=== PATIENT | female | born 1975 | race Caucasian/White ===

== ENCOUNTER 2017-01-25 09:27 | Emergency (ER) | payer MEDICAID ==
[~2017-01-25] VITALS: Ht 167.6 cm; Wt 65.8 kg
[~2017-01-25 09:27] MED LIST: MONODOX100 MG PO; OMEPRAZOLE40 MG PO
[2017-01-25 09:47] LABS: URINE BILIRUBIN - DIPSTICK NEGATIVE (NEG)
[2017-01-25 09:48] LABS: URINE BLOOD LARGE (NEG)
--- NOTE | 2017-01-25 09:58 | Urgent Treatment Center Report ---
History of Present Issue Date/Time Seen by Provider 01/25/17 0945 Visit Reason Pt arrived:Walked Presenting Problem:PT C/O ABNORMAL VAGINAL BLEEDING X3 DAYS. PT C/O PAIN ON RIGHT LOWER SIDE AROUND OVARY AND GOES AROUND TO HER BACK Location if Accident: Onset of symptoms date/time:/ or onset unknown for:MEDICAL HX UNKNOWN Have you (or family members/close friends) recently traveled outside the [place]? N If Yes, where/when: Have you had exposure to infectious disease within the past month? TB? Other? Specify: Patient state that on Tuesday she began spotting then today she was having a little more bleeding. States that she is having to change her panty liner every 3-4 hours. States that her bleeding is not real heavy and not passing clots, states that this morning she started having some right flank pain and burning when she urinates ALLERGIES Coded Allergies: No Known Allergies (10/24/15) History Medical History General CAD? No Angina: No [place]: No Hypertension? No Hyperlipidemia? No CHF? No DVT? No PE? No COPD? No Asthma? No Anemia? No GERD? No Gastric ulcers? No GI Bleed? No Hernia? No Thyroid Problems? No Hypothyroidism? No CVA? No Seizures? No Diabetes? No Renal Insuffiency? No UTI? No Stones? No BPH? No GB Disease: Yes Nephritic Syndrome? No Asplenia? No Hepatitis? No Sickle Cell Disease? No Arthritis? No Migraines? No Cataracts? No Glaucoma? No MRSA? No HIV? No TB? No Anxiety? Yes Depression? No Cancer? No More? No Immunization HX DT/Tetanus 1-4 YRS Flu NEVER Pneumonia NEVER Surgical Hx Previous Surgery?Y D AND C X 2 X 2 CHOLECYSTECTOMY TUBAL Family History Family HX Diabetes Yes CAD Yes Hypertension Yes Hyperlipidemia No Cancer Yes TB Yes Social History Smoking Hx Smoker: Never Smoker Tobacco: No Alcohol Alcohol: No Review of Systems All Other Systems Reviewed and Negative Genitourinary abnormal vaginal bleeding, dysuria, frequency, pain. denies: discharge, vaginal discharge, hesitancy, pelvic pain. Physical Exam Vital Signs Vital Signs Date Time Temp Pulse Resp B/P Pulse O2 O2 Flow FiO2 Ox Delivery Rate 01/25 0938 99.2 97 20 141/72 100 General Appearance normal appearance, WD/WN, no apparent distress Respiratory Status Yes: trachea midline, chest symmetrical. No: respiratory distress. Cardiovascular normal exam, regular rate/rhythm, no peripheral edema, no gallop Gastrointestinal normal bowel sounds, normal exam, non tender, soft, no guarding , no rebound Back normal inspection, no CVA tenderness, no vertebral tenderness Pelvic scant bleeding Nurse present during exam? 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 No Results/Orders Laboratory Tests 01/25/17 0941: Urine Color ORANGE, Urine Appearance CLOUDY, Urine pH 5.0, Ur Specific [place] 1.025, Urine Protein 30, Urine Ketones NEGATIVE, Urine Blood LARGE, Urine Nitrate NEGATIVE, Urine Bilirubin NEGATIVE, Urine Urobilinogen 0.2, Ur Leukocyte Esterase TRACE H, Urine Glucose NEGATIVE Orders Procedure Date/time Status [facility] URINE DIPSTICK 01/25 941 Complete Departure Departure Time of Disposition 1001 Disposition DC Home or Self Care(routine) Clinical Impression Primary Impression: UTI (urinary tract infection) Qualifiers: Urinary tract infection type: site unspecified Hematuria presence: with hematuria Qualified Code: N39.0 - Urinary tract infection, site not specified Condition STABLE Referrals Haris MARQUEZ,Eugenio Toscano.: Today after leaving ER Graeme Rodarte MD: Today after leaving ER Patient Instructions DI for Urinary Tract Infection (UTI) Additional Instructions Follow up with OBGYN for complete work up for abnormal bleeding Take medication as prescribed Follow up with family doctor Return if needed Drink plenty of fluids Wipe front to back If any changes or worsening of bleeding report directly to ER Discharge Counseling Counseled pt/family regarding diagnosis, test results, medications/RX, home care, follow up needs Prescriptions Current Visit Scripts SULFAMETHOXAZOLE W/TRIMETHOPRI (Bactrim Ds Tab) 1 TABLET PO BID #20 TAB at 1017
--- NOTE | 2017-01-25 09:58 | Urgent Treatment Center Report ---
History of Present Issue Date/Time Seen by Provider 01/25/17 0945 Visit Reason Pt arrived:Walked Presenting Problem:PT C/O ABNORMAL VAGINAL BLEEDING X3 DAYS. PT C/O PAIN ON RIGHT LOWER SIDE AROUND OVARY AND GOES AROUND TO HER BACK Location if Accident: Onset of symptoms date/time:/ or onset unknown for:MEDICAL HX UNKNOWN Have you (or family members/close friends) recently traveled outside the [place]? N If Yes, where/when: Have you had exposure to infectious disease within the past month? TB? Other? Specify: Patient state that on Tuesday she began spotting then today she was having a little more bleeding. States that she is having to change her panty liner every 3-4 hours. States that her bleeding is not real heavy and not passing clots, states that this morning she started having some right flank pain and burning when she urinates ALLERGIES Coded Allergies: No Known Allergies (10/24/15) History Medical History General CAD? No Angina: No [place]: No Hypertension? No Hyperlipidemia? No CHF? No DVT? No PE? No COPD? No Asthma? No Anemia? No GERD? No Gastric ulcers? No GI Bleed? No Hernia? No Thyroid Problems? No Hypothyroidism? No CVA? No Seizures? No Diabetes? No Renal Insuffiency? No UTI? No Stones? No BPH? No GB Disease: Yes Nephritic Syndrome? No Asplenia? No Hepatitis? No Sickle Cell Disease? No Arthritis? No Migraines? No Cataracts? No Glaucoma? No MRSA? No HIV? No TB? No Anxiety? Yes Depression? No Cancer? No More? No Immunization HX DT/Tetanus 1-4 YRS Flu NEVER Pneumonia NEVER Surgical Hx Previous Surgery?Y D AND C X 2 X 2 CHOLECYSTECTOMY TUBAL Family History Family HX Diabetes Yes CAD Yes Hypertension Yes Hyperlipidemia No Cancer Yes TB Yes Social History Smoking Hx Smoker: Never Smoker Tobacco: No Alcohol Alcohol: No Review of Systems All Other Systems Reviewed and Negative Genitourinary abnormal vaginal bleeding, dysuria, frequency, pain. denies: discharge, vaginal discharge, hesitancy, pelvic pain. Physical Exam Vital Signs Vital Signs Date Time Temp Pulse Resp B/P Pulse O2 O2 Flow FiO2 Ox Delivery Rate 01/25 0938 99.2 97 20 141/72 100 General Appearance normal appearance, WD/WN, no apparent distress Respiratory Status Yes: trachea midline, chest symmetrical. No: respiratory distress. Cardiovascular normal exam, regular rate/rhythm, no peripheral edema, no gallop Gastrointestinal normal bowel sounds, normal exam, non tender, soft, no guarding , no rebound Back normal inspection, no CVA tenderness, no vertebral tenderness Pelvic scant bleeding Nurse present during exam? Yes Neurologic alert, abstract maker II-XII nml as tested, normal exam Medical Decision Making LABS/Meds/Orders Pt receiving controlled substance in ED? No Results/Orders Laboratory Tests 01/25/17 0941: Urine Color ORANGE, Urine Appearance CLOUDY, Urine pH 5.0, Ur Specific [place] 1.025, Urine Protein 30, Urine Ketones NEGATIVE, Urine Blood LARGE, Urine Nitrate NEGATIVE, Urine Bilirubin NEGATIVE, Urine Urobilinogen 0.2, Ur Leukocyte Esterase TRACE H, Urine Glucose NEGATIVE Orders Procedure Date/time Status [facility] URINE DIPSTICK 01/25 941 Complete Departure Departure Time of Disposition 1001 Disposition DC Home or Self Care(routine) Clinical Impression Primary Impression: UTI (urinary tract infection) Qualifiers: Urinary tract infection type: site unspecified Hematuria presence: with hematuria Qualified Code: N39.0 - Urinary tract infection, site not specified Condition STABLE Referrals Haris MARQUEZ,Eugenio Toscano.: Today after leaving ER Graeme Rodarte MD: Today after leaving ER Patient Instructions DI for Urinary Tract Infection (UTI) Additional Instructions Follow up with OBGYN for complete work up for abnormal bleeding Take medication as prescribed Follow up with family doctor Return if needed Drink plenty of fluids Wipe front to back If any changes or worsening of bleeding report directly to ER Discharge Counseling Counseled pt/family regarding diagnosis, test results, medications/RX, home care, follow up needs Prescriptions Current Visit Scripts SULFAMETHOXAZOLE W/TRIMETHOPRI (Bactrim Ds Tab) 1 TABLET PO BID #20 TAB at 1017
[2017-01-25] MEDS ORDERED: BACTRIM DS 8001 TA1 PO (10:04)
[2017-01-25 10:08] VITALS: BP 141/72
--- OUTSIDE RECORDS SUMMARY | 2017-02-01 02:13 | External Medical Summary Rpt ---
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 Unavailable Unavailable SERVICE, [facility] MICHELLE DUMONT, Unavailable Unavailable [facility], Unavailable Unavailable [facility] CHICA MELANI, CHICA Unavailable Unavailable MELANI [facility], Unavailable Unavailable [facility] Unavailable Unavailable INC, [facility] Unavailable Unavailable HOSPITAL, [facility], Unavailable Unavailable [facility] Unavailable Unavailable [facility], [facility] Unavailable Unavailable SERVICES, [facility] RAKESH MCGINNIS, Unavailable Unavailable [facility] Unavailable Unavailable LAB, [id number], Unavailable Unavailable [id number] Unavailable Unavailable [id number] [address] [id number], [facility] [id number] [address] [id number] CISCO TOM, CISCO Unavailable Unavailable TOM [facility]STAD DOROTEO, Unavailable Unavailable [facility] D[facility], Unavailable Unavailable [facility] BENEDICTO MAT, Unavailable Unavailable BENEDICTO MAT SOKAN BAB, SOKAN BAB Unavailable Unavailable OCTAVIO DURAND, Unavailable Unavailable OCTAVIO DURAND A C, CATALINA, Unavailable Unavailable Rohit C Purpose Continuity of Care Document - 09-08-2007 through 2016 Problems Code Diagnosis DOS Provider Status J101 FLU D/T [facility] 11-10-2015 FLUKER ID FLU [facility] RESP MANIFESTATI ONS E876 HYPOKALEMIA 10-28-2015 [facility] R002 PALPITATION 10-28-2015 [facility] S [facility] R079 CHEST PAIN 10-28-2015 [facility] UNSPECIFIED PHYSICIANS GROUP [id number] ABNORMAL 10-28-2015 [facility]LECTR[facility]ARD [facility] IOGRAM INC R000 TACHYCARDIA 10-24-2015 [facility] UNSPECIFIED SERVICE R110 NAUSEA 10-24-2015 [facility] SERV[facility] 462 ACUTE 10-11-2014 TRUMAN AKERS PHARYNGITIS 4659 ACUTE URIS 10-11-2014 TRUMAN AKERS OF UNSPECIFIED SITE 78322 ESOPHAGEAL 02-09-2012 [facility] 7061 OTHER ACNE 01-18-2012 TRUMAN OSWALD 24851 CLOSED 11-06-2011 [facility] FRACTURE [facility] UNSPEC INC PHALANX/PHA LANGES HAND 61149 CLOSED 11-06-2011 [facility] DISTAL SERVICES PHALANX OR PHALANGES HAND 45192 CHOLECYSTIT 03-13-2010 COMMUNITY IS, ANESTH OF UNSPECIFIED THE [place] 77143 CHRONIC 03-13-2010 PATHOLOGY & CHOLECYSTIT CYTOLOGY IS LAB 5758 OTHER 03-13-2010 [facility] SPECIFIED [facility] DISORDER OF INC GALLBLADDER 39390 NAUSEA 03-03-2010 [facility] ALONE DOROTEO 7873 FLATULENCE 03-03-2010 [facility] ERUCTATION DOROTEO AND GAS PAIN 88574 ABDOMINAL 03-03-2010 [facility] PAIN RIGHT DOROTEO UPPER QUADRANT 5759 UNSPECIFIED 02-23-2010 ARNOLD, DISORDER JOEY W OF GALLBLADDER 4619 ACUTE 08-07-2009 Rohit ARNOLD SINUSITISMD PSC UNSPECIFIED 62407 PAIN IN 09-16-2007 [facility] PROF SERV 50380 PREV C/S 09-14-2007 [facility] W/WO CLINIC OF MENTION MIGUEL MARTINEZ [facility] COND V252 STERILIZATI 09-14-2007 PATHOLOGY & ON CYTOLOGY LAB V270 OUTCOME OF 09-14-2007 [facility] V221 SUPERVISION 09-08-2007 [facility] Miles OF RHONDA EDWARDS MD NORMAL N92.1 EXCESSIVE AND FREQUENT MENSTRUATIO N WITH IRREGULAR CYCLE R00.2 PALPITATION S Medications Na ND Rx Da Fi Fi Am Da Di Ph RX Ph St me C No te ll ll ou ys ag ar # ys at rm s nt no ma ic us Or Da si cy ia de te s n re d 00 07 07 30 5 RI 84 SC Ac 60 -0 -0 .0 TE 10 HU ti 33 9- 9- 00 26 LS ve 88 20 20 AI TA 12 10 10 D D 8 PH CA AR MP MA BE CY LL K 03 93 8 # 03 93 66 12 12 00 12 6 RI 81 No Ac 99 -0 -1 0. TE 15 t ti 20 3- 7- 00 83 Av ve 23 20 20 0 AI ai 00 09 09 D la 4 PH bl AR e M #3 93 8 CE 00 12 12 00 30 10 RI 81 No Ac PH 14 -0 -1 .0 TE 15 t ti AL 39 3- 7- 00 81 Av ve EX 89 20 20 AI ai IN 70 09 09 D la 1 PH bl 50 AR e 0 M MG #3 93 CA 8 PS UL E PE 00 09 12 00 40 10 RI 81 AR Ac NI 09 -2 -0 .0 TE 02 NO ti CI 31 5- 3- 00 14 LD ve LL 17 20 20 AI IN 40 09 09 D RI 1 PH CH VK AR AR M D 50 #3 W 0 93 MG 8 TA BL ET FU 00 01 03 00 10 5 RI 71 No Ac RO 37 -1 -2 .0 TE 51 t ti SE 80 5- 5- 00 08 Av ve MA 20 20 20 AI ai DE 81 08 08 D la 0 PH bl 20 AR e M MG #3 93 TA 8 BL ET 00 01 03 00 30 6 CL 16 No Ac 05 -1 -2 .0 IN 25 t ti 44 2- 5- 00 IC 74 Av ve 65 20 20 ai 02 08 08 PH la 9 AR bl MA e CY Procedures Procedure DOS Code Location Performer Comment ECG 41535 [facility] GUSTAFSON ROUTINE 6 [facility] ECG INC INC W/LEAST 12 LDS TRCG ONLY W/O I&R ECG 33603 [facility] ROUTINE 6 PHYSICIAN MAT ECG S GROUP W/LEAST 12 LDS I&R ONLY COLLECTIO 05781 [facility] GUSTAFSON N VENOUS 6 [facility] BLOOD INC INC VENIPUNCT URE BASIC 75603 [facility] GUSTAFSON METABOLIC 6 [facility] PANEL INC INC CALCIUM TOTAL AMB A0427 [facility] SERVICE 6 [facility] ALS SERVICE SERVICE EMERGENCY TRANSPORT LEVEL 1 RADIOLOGI 61415 [place] CAPPS ALL C EXAM 6 MEDICAL CHEST 2 IMAGING VIEWS ASS FRONTAL&L ATERAL GROUND A0425 [facility] MILEAGE 6 AMBULANCE AMBULANCE PER SERVICE SERVICE STATUTE MILE RADEX 54958 [place] HAND 2 MEDICAL MEDICAL MINIMUM 3 [place] [address] [facility]USTAFS[facility] INFUSION 0 [facility] THERAPY INC INC PROPHYLAX IS/DX EA HOUR LAPAROSCO 5123 [facility] KYLEON PIC 0 [facility] CHOLECYST INC INC ECTOMY ANES 89878 [facility] KIZZY, INTRAPERI 0 ANESTH OCTAVIO A TONEAL OF THE UPPER [place]BD[place] W/L[place] [address] [facility]UST[facility]FS[facility] INFUSION 0 [facility] THERAPY/P INC INC ROPHYLAXI S /DX 1ST TO 1 HR THERAPEUT 21259 [facility] IC 0 [facility] INJECTION INC INC IV PUSH EACH NEW DRUG LEVEL III 01989 PATHOLOGY PATHOLOGY SURG 0 & & PATHOLOGY CYTOLOGY CYTOLOGY LAB LAB GROSS&MELANI ROSCOPIC EXAM LAPAROSCO 34194 TIFFANIE MORENO PY SURG 0 DOROTEO DOROTEO CHOLECYST ECTOMY GONADOTRO 11486 [facility] PIN 0 [facility] CHORIONIC INC INC QUALITATI VE BLOOD 24341 [facility] COUNT 0 [facility] COMPLETE INC INC AUTO&AUTO DIFRNTL WBC IADNA 36779 Rohit ARNOLD, Rohit STREPTOCO 9 CATALINA Ibarra CCUS PSC GROUP A QUANTIFIC ATION RADIOLOGI 91863 [facility] GUSTAFSON C 8 [facility] EXAMINATI INC INC ON KNEE 3 VIEWS OTH 6632 [facility] GUSTAFSON BILATERAL 8 [facility] LIGATION INC INC & DIVISIN FALLOPIAN TUBES LOW 741 SJ GUSTAFSON CERVICAL 8 [facility] [place] [address] PATHOLOGY PATHOLOGY SURG 8 & & PATHOLOGY CYTOLOGY CYTOLOGY LAB LAB GROSS&MELANI ROSCOPIC EXAM 33487 [facility] EDWAR[facility], DELIVERY 8 JERRY MENDOZA W/POSTPAR [facility]PH[facility] ANESTHESI 00020 Rohit PIPER 8 ANESTH RAKESH F OF THE DELIVERY [place] ONLY LIG/TRNSX 19540 [facility] EDWARDS, J 8 JERRY Miles FALOPIAN TUBE DEL/ABDML SURG 79311 [facility], DELIVERY 8 [facility] Encounters Encounter Start End Date Code Location Performer Type Date OFFICE 70041 [facility] RATLIFF OUTPATIEN 6 6 [facility] MINUTES HOSPITAL [facility] - 6 6 [facility] OUTPATIEN INC T OFFICE 53194 [facility] BENEDICTO OUTPATIEN 6 6 PHYSICIAN MAT T NEW 60 S GROUP MINUTES EMERGENCY 22013 [facility] DEPT 6 6 PHYSICIAN MELANI VISIT S, [facility] HIGH SEVERITY& THREAT FUNJ OFFICE 48423 TRUMAN CHRISTIANSON 5 5 OSWALD OSWALD T VISIT 15 MINUTES OFFICE 78223 TRUMAN CHRISTIANSON 4 4 OSWALD OSWALD T VISIT 15 MINUTES HOSPITAL [facility] - 2 2 [facility] OUTPATIEN INC T EMERGENCY 90615 [facility] PECK 2 2 EMERGENCY TOM DEPARTMEN SERVICES T VISIT HIGH/URGE NT SEVERITY EMERGENCY 96250 [facility] 2 2 [facility] DEPARTMEN INC T VISIT LOW/MODER SEVERITY OFFICE 72729 TRUMAN CHRISTIANSON 2 2 OSWALD OSWALD T VISIT 15 MINUTES EMERGENCY 42340 [facility] GROVER 2 2 EMERGENCY [facility] SERVICES T VISIT HIGH/URGE NT SEVERITY EMERGENCY 83844 [facility] 2 2 [facility] DEPARTMEN INC T VISIT LOW/MODER SEVERITY HOSPITAL [facility] - 2 2 [facility] OUTPATIEN [facility] T HOSPITAL [facility] - 0 0 [facility] OUTPATIEN [facility] T HOSPITAL [facility] - 0 0 [facility] OUTPATIEN INC T OFFICE 77691 [facility] SCHULSTAD CONSULTAT 0 0 DOROTEO DOROTEO ION NEW/ESTAB PATIENT 60 MIN OFFICE 87339 TRUMAN LAUGHLIN OUTPATIEN 0 0 JOEY [place] NEW 30 MINUTES OFFICE 91418 Rohit PEPE 9 9 CATALINA [place] NEW 30 PSC MINUTES EMERGENCY 15121 [facility] 8 8 [facility] T VISIT LOW/MODER SEVERITY HOSPITAL [facility] - 8 8 [facility] OUTPATIEN INC T EMERGENCY 35912 [facility] LE, 8 8 [facility] T VISIT PROF SERV MODERATE SEVERITY HOSPITAL [facility] - 8 8 [facility] INPATIENT INC OFFICE 96348 [facility] JERRY Miles T VISIT 15 MINUTES
--- OUTSIDE RECORDS SUMMARY | 2017-02-01 02:13 | External Medical Summary Rpt ---
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 Name Role Phone TRUMAN RUTLEDGE Unavailable Unavailable OSWALD ARNOLD OSWALD, ARNOLD Unavailable Unavailable OSWALD JOEY LAUGHLIN W, Unavailable Unavailable JOEY LAUGHLIN W AYROMAN, MC, REY, Unavailable Unavailable MC PREITO TER, PRIETO TER Unavailable Unavailable [facility], [facility] ALL Unavailable Unavailable [facility] Unavailable Unavailable SERVICE, [facility] Unavailable Unavailable SERVICE, [facility] MICHELLE DUMONT, Unavailable Unavailable [facility]HEL[facility], Unavailable [facility] CHICA MELANI, CHICA Unavailable Unavailable MELANI [facility] EDWARDS, Unavailable Unavailable [facility] EDWAR[facility] Unavailable Unavailable INC, [facility] Unavailable [facility]available HOSPITAL, [facility], Unavailable Unavailable [facility] Unavailable Unavailable IM[facility]ING [facility], [facility] Unavailable Unavailable SERVICES, [facility] RAKESH MCGINNIS, Unavailable Unavailable [facility] Unavailable Unavailable LAB, [id number], Unavailable Unavailable [id number] Unavailable Unavailable [id number] # [id number], [facility] [address] # 0393 CISCO TOM, CISCO Unavailable Unavailable TOM SCHULSTAD DOROTEO, Unavailable Unavailable SCHULSTAD DOROTEO SCHULSTAD DOROTEO, Unavailable Unavailable SCHULSTAD DOROTEO BENEDICTO MAT, Unavailable Unavailable BENEDICTO MAT SOKAN BAB, SOKAN BAB Unavailable Unavailable OCTAVIO DURAND, Unavailable Unavailable OCTAVIO DURAND A C, CATALINA, Unavailable Unavailable Rohit C Purpose Continuity of Care Document - 09-08-2007 through 2016 Problems Code Diagnosis DOS Provider Status J101 FLU D/T [facility] 11-10-2015 [place] ID FLU [facility] RESP MANIFESTATI ONS E876 HYPOKALEMIA 10-28-2015 [facility] R002 PALPITATION 10-28-2015 [facility] S [facility] R079 CHEST PAIN 10-28-2015 [facility] UNSPECIFIED [facility]YSIC[facility]ANS GROUP R9431 ABNORMAL 10-28-2015 [facility] IOGRAM INC R000 TACHYCARDIA 10-24-2015 [facility] UNSPECIFIED SERVICE R110 NAUSEA 10-24-2015 [facility] 462 ACUTE 10-11-2014 TRUMAN AKERS PHARYNGITIS 4659 ACUTE URIS 10-11-2014 TRUMAN AKERS OF UNSPECIFIED SITE 64146 ESOPHAGEAL 02-09-2012 [facility] 7061 OTHER ACNE 01-18-2012 TRUMAN OSWLAD 37146 CLOSED 11-06-2011 [facility]URE [facility] UNSPEC INC PHALANX/PHA LANGES HAND 57708 CLOSED 11-06-2011 [facility] FRACTURE EMERGENCY DISTAL SERVICES PHALANX OR PHALANGES HAND 55525 CHOLECYSTIT 03-13-2010 COMMUNITY IS, ANESTH OF UNSPECIFIED [place] 45118 CHRONIC 03-13-2010 PATHOLOGY & CHOLECYSTIT CYTOLOGY IS LAB 5758 OTHER 03-13-2010 [facility] SPECIFIED [facility] DISORDER OF INC GALLBLADDER 52290 NAUSEA 03-03-2010 [facility] ALONE DOROTEO 7873 FLATULENCE 03-03-2010 [facility] ERUCTATION DOROTEO AND GAS PAIN 68219 ABDOMINAL 03-03-2010 [facility] PAIN RIGHT DOROTEO UPPER QUADRANT 5759 UNSPECIFIED 02-23-2010 ARNOLD, DISORDER JOEY W OF GALLBLADDER 4619 ACUTE 08-07-2009 Rohit ARNOLD SINUSITISMD PSC UNSPECIFIED 26190 PAIN IN 09-16-2007 [facility], [facility] PROF SERV 07676 PREV C/S 09-14-[address] [facility] W/WO CLINIC OF MENTION MIGUEL MARTINEZ [facility] COND V252 STERILIZATI 09-14-2007 PATHOLOGY & ON CYTOLOGY LAB V270 OUTCOME OF 09-14-2007 [facility] OF LIVEBORN MIGUEL [facility] V221 SUPERVISION 09-08-2007 KVNG Miles OF RHONDA [...] 80 5- 5- 00 08 Av ve FL 20 20 20 AI ai DE 81 [...] Procedure DOS Code Location Performer Comment ECG 28105 SJ GUSTAFSON ROUTINE [address] [facility] ECG INC INC W/LEAST 12 LDS TRCG ONLY W/O I&R ECG 53419 [facility] ROUTINE 6 PHYSICIAN MAT ECG S GROUP W/LEAST 12 LDS I&R ONLY COLLECTIO 31474 SJ GUSTAFSON N VENOUS [address] [facility] BLOOD INC INC VENIPUNCT URE BASIC 09035 SJ GUSTAFSON METABOLIC 6 [facility] PANEL INC INC CALCIUM TOTAL AMB A[address] [facility] SERVICE 6 AMBULANCE AMBULANCE ALS SERVICE SERVICE EMERGENCY TRANSPORT LEVEL 1 RADIOLOGI 27021 [facility] CAPPS ALL C EXAM 6 MEDICAL CHEST 2 IMAGING VIEWS ASS FRONTAL&L ATERAL GROUND A[address] [facility] MILEAGE 6 AMBULANCE AMBULANCE PER SERVICE SERVICE STATUTE MILE RADEX 27766 [place] HAND 2 MEDICAL MEDICAL MINIMUM 3 [place] [address] SJ GUSTAFSON INFUSION 0 [facility] THERAPY INC INC PROPHYLAX IS/DX EA HOUR LAPAROSCO 5123 SJ KYLEON PIC 0 [facility] CHOLECYST INC INC ECTOMY ANES 85761 [facility] KIZZY, INTRAPERI 0 ANESTH OCTAVIO A TONEAL OF THE UPPER [place]BD[place] [address] SJ GUSTAFSON INFUSION 0 [facility] THERAPY/P INC INC ROPHYLAXI S /DX 1ST TO 1 HR THERAPEUT 69060 SJ GUSTAFSON IC [address] [facility] INJECTION INC INC IV PUSH EACH NEW DRUG LEVEL III 91793 PATHOLOGY PATHOLOGY SURG 0 & & PATHOLOGY CYTOLOGY CYTOLOGY LAB LAB GROSS&MELANI ROSCOPIC EXAM LAPAROSCO 89340 TIFFANIE MORENO PY SURG 0 DOROTEO DOROTEO CHOLECYST ECTOMY GONADOTRO 46700 SJ GUSTAFSON PIN 0 [facility] CHORIONIC INC INC QUALITATI VE BLOOD 87618 SJ GUSTAFSON COUNT 0 [facility] COMPLETE INC INC AUTO&AUTO DIFRNTL WBC IADNA 31333 Rohit ARNOLD, Rohit STREPTOCO 9 CATALINA Ibarra CCUS PSC GROUP A QUANTIFIC ATION RADIOLOGI 92654 SJ GUSTAFSON C [address] [facility] EXAMINATI INC INC ON KNEE 3 VIEWS OTH 6632 SJ GUSTAFSON BILATERAL 8 MEM [facility] LIGATION INC INC & DIVISIN FALLOPIAN TUBES LOW 741 SJ GUSTAFSON CERVICAL 8 [facility] [place] L[place] [address] PATHOLOGY PATHOLOGY SURG 8 & & PATHOLOGY CYTOLOGY CYTOLOGY LAB LAB GROSS&MELANI ROSCOPIC EXAM 12970 KV[facility] EDWARDS, DELIVERY 8 JERRY MENDOZA W/POSTPAR STEPHANIE CARE ANESTHESI 46738 Rohit PIPER 8 ANESTH RAKESH F OF THE DELIVERY [place] ONLY LIG/TRNSX 80267 KVNG EDWARDS, J 8 JERRY Miles FALOPIAN TUBE DEL/ABDML SURG 42853 [facility], DELIVERY 8 [facility] CLINIC OF MIGUEL [facility] Encounters Encounter Start End Date Code Location Performer Type Date OFFICE 26196 SJ RATLIFF OUTPATIEN 6 [facility]ES [facility] SJ - 6 6 [facility] OUTPATIEN INC T OFFICE 27428 [facility] BENEDICTO OUTPATIEN 6 6 PHYSICIAN MAT T NEW 60 S GROUP MINUTES EMERGENCY 78113 [facility] DEPT 6 6 PHYSICIAN MELANI VISIT S, [facility] HIGH SEVERITY& THREAT FUNJ OFFICE 54385 TRUMAN CHRISTIANSON 5 5 OSWALD OSWALD T VISIT 15 MINUTES OFFICE 80796 TRUMAN CHRISTIANSON 4 4 OSWALD OSWALD T VISIT 15 MINUTES HOSPITAL SJ - 2 2 [facility] OUTPATIEN INC T EMERGENCY 36503 [facility] PECK 2 2 EMERGENCY TOM DEPARTMEN SERVICES T VISIT HIGH/URGE NT SEVERITY EMERGENCY 28045 SJ 2 2 [facility] DEPARTMEN INC T VISIT LOW/MODER SEVERITY OFFICE 77352 TRUMAN CHRISTIANSON 2 2 OSWALD OSWALD T VISIT 15 MINUTES EMERGENCY 81738 [facility] GROVER 2 2 EMERGENCY DEPARTMEN SERVICES T VISIT HIGH/URGE NT SEVERITY EMERGENCY 53073 SJ 2 2 [facility] DEPARTMEN INC T VISIT LOW/MODER SEVERITY HOSPITAL SJ - 2 2 [facility] S[facility] - 0 0 [facility]PAT[facility]OSPITAL SJ - 0 0 [facility] OUTPATIEN INC T OFFICE 52414 [facility] SCHULSTAD CONSULTAT 0 0 DOROTEO DOROTEO ION NEW/ESTAB PATIENT 60 MIN OFFICE 68301 TRUMAN LAUGHLIN OUTPATIEN 0 0 JOEY [place] NEW 30 MINUTES OFFICE 86996 Rohit PEPE 9 9 CATALINA Bran[place] NEW 30 PSC MINUTES EMERGENCY [address] [facility] T VISIT LOW/MODER SEVERITY HOSPITAL SJ - [address] [facility] OUTPATIEN INC T EMERGENCY 95737 SJ LE, [address] [facility] T VISIT PROF SERV MODERATE SEVERITY HOSPITAL SJ - [address] [facility] INPATIENT INC OFFICE 73536 [facility]AR[facility] JERRY Miles T VISIT 15 MINUTES
--- OUTSIDE RECORDS SUMMARY | 2017-02-01 02:14 | External Medical Summary Rpt ---
Author Author , Organization [employer] Address Unknown Phone Unavailable Care Team Providers Care Wrapper Counter Name Role Phone TRUMAN AKERS, TRUMAN Unavailable Unavailable OSWALD ARNOLD OSWALD, ARNOLD Unavailable Unavailable OSWALD TRUMAN, JOEY W, Unavailable Unavailable JOEY LAUGHLIN W AYROMAN, MC, AYBRITTNEYM, Unavailable Unavailable MC PRIETO TER, PRIETO TER Unavailable Unavailable [facility]PS ALL, [facility]PS ALL Unavailable Unavailable [facility] Unavailable Unavailable SERVICE, [facility] Unavailable Unavailable SERVICE, [facility] MICHELLE DUMONT, Unavailable Unavailable MICHELLE D[facility], Unavailable [facility]available [facility] NAGI FLANAGAN, Unavailable Unavailable NAGI FLANAGAN, CHICA Unavailable Unavailable MELANI KVNG EDWARDS, Unavailable Unavailable KVNG EDWARDS [facility] Unavailable Unavailable INC, [facility] Unavailable [facility], [facility], Unavailable Unavailable [facility] Unavailable Unavailable SERVICES, [facility] RAKESH MCGINNIS, Unavailable Unavailable RAKESH MCGINNIS [facility] Unavailable Unavailable LAB, PATHOLOGY & CYTOLOGY LAB [id number], Unavailable Unavailable [id number] Unavailable Unavailable 10607 # 0393, [facility] [address] # 0393 CISCO SANTOS, CISCO Unavailable Unavailable TOM SCHULSTAD DOROTEO, Unavailable Unavailable SCHULSTAD DOROTEO SCHULSTAD DOROTEO, Unavailable Unavailable SCHULSTAD DOROTEO BENEDICTO MAT, Unavailable Unavailable BENEDICTO MAT SOKAN BAB, SOKAN BAB Unavailable Unavailable OCTAVIO DURAND, Unavailable Unavailable OCTAVIO DURAND A C, CATALINA, Unavailable Unavailable Rohit C Purpose Continuity of Care Document - 09-08-2007 through 2016 Problems Code Diagnosis DOS Provider Status J101 FLU D/T [facility] 11-10-2015 [place] ID FLU [facility] RESP MANIFESTATI ONS E876 HYPOKALEMIA 10-28-2015 [facility] R002 PALPITATION 10-28-2015 [facility] S PHYS[facility] GROUP R079 CHEST PAIN 10-28-2015 [facility] UNSPECIFIED PHYSICIANS GROUP R9431 ABNORMAL 10-28-2015 [facility] IOGRAM INC R000 TACHYCARDIA 10-24-2015 [facility] AMBULANCE UNSPECIFIED SERVICE R110 NAUSEA 10-24-2015 [facility] AMBULANCE SERVICE 462 ACUTE 10-11-2014 TRUMAN AKERS PHARYNGITIS 4659 ACUTE URIS 10-11-2014 TRUMAN AKERS OF UNSPECIFIED SITE 87044 ESOPHAGEAL 02-09-2012 [facility] 7061 OTHER ACNE 01-18-2012 TRUMAN OSWALD 01540 CLOSED 11-06-2011 [facility] UNSPEC INC PHALANX/PHA LANGES HAND 25089 CLOSED 11-06-2011 [facility] FRACTURE EMERGENCY DISTAL SERVICES PHALANX OR PHALANGES HAND 71478 CHOLECYSTIT 03-13-2010 COMMUNITY IS, ANESTH OF UNSPECIFIED [place] 45136 CHRONIC 03-13-2010 PATHOLOGY & CHOLECYSTIT CYTOLOGY IS LAB 5758 OTHER 03-13-2010 [facility] SPECIFIED [facility] DISORDER OF INC GALLBLADDER 92482 NAUSEA 03-03-2010 [facility] ALONE DOROTEO 7873 FLATULENCE 03-03-2010 [facility] ERUCTATION DOROTEO AND GAS PAIN 38467 ABDOMINAL 03-03-2010 [facility] PAIN RIGHT DOROTEO UPPER QUADRANT 5759 UNSPECIFIED 02-23-2010 ARNOLD, DISORDER JOEY W OF GALLBLADDER 4619 ACUTE 08-07-2009 Rohit ARNOLD SINUSITISMD PSC UNSPECIFIED 98419 PAIN IN 09-16-2007 [facility] PROF SERV 95583 PREV C/S 09-14-2007 [facility] W/WO [facility] COND V252 STERILIZATI 09-14-2007 PATHOLOGY & ON CYTOLOGY LAB V270 OUTCOME OF 09-14-2007 [facility] V221 SUPERVISION 09-08-2007 [facility] OF RHONDA EDWARDS MD NORMAL Medications Na ND Rx Da Fi Fi [...] 0 93 MG 8 TA BL ET 00 01 03 00 30 6 CL 16 No Ac 05 -1 -2 .0 IN 25 t ti 44 2- 5- 00 IC 74 Av ve 65 20 20 ai 02 08 08 PH la 9 AR bl MA e CY FU 00 01 03 00 10 5 RI 71 No Ac RO 37 -1 -2 .0 TE 51 t ti SE 80 5- 5- 00 08 Av ve KS 20 20 20 AI ai DE 81 08 08 D la 0 PH bl 20 AR e M MG #3 93 TA 8 BL ET Procedures Procedure DOS Code Location Performer Comment ECG 47843 SJ GUSTAFSON ROUTINE 6 [facility] ECG INC INC W/LEAST 12 LDS TRCG ONLY W/O I&R COLLECTIO 88367 SJ GUSTAFSON N VENOUS 6 [facility] HOSP BLOOD INC INC VENIPUNCT URE ECG 01839 [facility] ROUTINE 6 PHYSICIAN MAT ECG S GROUP W/LEAST 12 LDS I&R ONLY BASIC 61206 SJ GUSTAFSON METABOLIC 6 [facility] PANEL INC INC CALCIUM TOTAL RADIOLOGI 39286 MAINE CAPPS ALL C EXAM 6 MEDICAL CHEST 2 IMAGING VIEWS ASS FRONTAL&L ATERAL GROUND A0425 [facility] MILEAGE 6 AMBULANCE AMBULANCE PER SERVICE SERVICE STATUTE MILE AMB A0427 [facility] SERVICE 6 AMBULANCE AMBULANCE ALS SERVICE SERVICE EMERGENCY TRANSPORT LEVEL 1 RADEX 40790 SJ GUSTAFSON HAND 2 [facility] MINIMUM 3 INC INC VIEWS LAPAROSCO 69347 TIFFANIE MORENO PY SURG 0 DOROTEO DOROTEO CHOLECYST ECTOMY ANES 56186 [facility] KIZZY, INTRAPERI 0 ANESTH OCTAVIO Rohit TONEAL OF THE UPPER [place]BD[place] [address] SJ GUSTAFSON INFUSION 0 [facility] THERAPY/P INC INC ROPHYLAXI S /DX 1ST TO 1 HR THERAPEUT 56782 SJ GUSTAFSON IC 0 [facility] INJECTION INC INC IV PUSH EACH NEW DRUG LEVEL III 01256 PATHOLOGY PATHOLOGY SURG 0 & & PATHOLOGY CYTOLOGY CYTOLOGY LAB LAB GROSS&[place] [address] SJ GUSTAFSON INFUSION 0 [facility] THERAPY INC INC PROPHYLAX IS/DX EA HOUR LAPAROSCO 5123 SJ GUSTAFSON PIC 0 [facility] CHOLECYST INC INC ECTOMY GONADOTRO 90048 SJ GUSTAFSON PIN 0 [facility] CHORIONIC INC INC QUALITATI VE BLOOD 08001 SJ GUSTAFSON COUNT 0 [facility] COMPLETE INC INC AUTO&AUTO DIFRNTL WBC IADNA 95298 Rohit PEPE STREPTOCO 9 CATALINA Ibarra CCUS PSC GROUP A QUANTIFIC ATION RADIOLOGI 05523 [facility] MEDICAL NAGI EXAMINATI IMAGING ON KNEE 3 ASSOCIATE VIEWS S OTH 6632 SJ GUSTAFSON BILATERAL 8 [facility] LIGATION INC INC & DIVISIN FALLOPIAN TUBES LIG/TRNSX 86983 Dorcas KELLEY MD FALOPIAN TUBE DEL/ABDML SURG 18088 [facility], DELIVERY 8 [facility] LOW 741 SJ GUSTAFSON CERVICAL 8 [facility] INC INC SECTION ANESTHESI 99289 Rohit PIPER 8 ANESTH RAKESH F OF THE DELIVERY [place] L[place] II [address] PATHOLOGY PATHOLOGY SURG 8 & & PATHOLOGY CYTOLOGY CYTOLOGY LAB LAB GROSS&MELANI ROSCOPIC EXAM 12689 KVNG EDWARDS, DELIVERY 8 [facility] MD KVNG R ONLY W/POSTPAR STEPHANIE CARE Encounters Encounter Start End Date Code Location Performer Type Date OFFICE 69230 SJ RATLIFF OUTPATIEN 6 6 [facility] T VISIT HOSPITAL 15 MINUTES HOSPITAL SJ - 6 6 [facility] OUTPATIEN INC T OFFICE 29503 [facility] OUTPATIEN 6 6 PHYSICIAN MAT T NEW 60 S GROUP MINUTES EMERGENCY 65356 KAPIL CALLESEY DEPT 6 6 PHYSICIAN MELANI VISIT S, PLLC HIGH SEVERITY& THREAT FUNCJ OFFICE 82943 TRUMAN CHRISTIANSON 5 5 OSWALD OSWALD T VISIT 15 MINUTES OFFICE 12480 TRUMAN CHRISTIANSON 4 4 OSWALD OSWALD T VISIT 15 MINUTES HOSPITAL SJ - 2 2 [facility] OUTPATIEN [facility] T EMERGENCY 57340 S[facility] 2 2 [facility] T VISIT LOW/MODER SEVERITY EMERGENCY 20983 [facility] PECK 2 2 EMERGENCY [facility]OM DEPARTMEN SERVICES T VISIT HIGH/URGE NT SEVERITY OFFICE 59641 TRUMAN CHRISTIANSON 2 2 OSWALD OSWALD T VISIT 15 MINUTES EMERGENCY 17280 [facility] GROVER 2 2 EMERGENCY DEPARTMEN SERVICES T VISIT HIGH/URGE NT SEVERITY HOSPITAL SJ - 2 2 [facility] OUTPATIEN [facility] T EMERGENCY 40960 SJ 2 2 [facility] T VISIT LOW[facility]MODER SEVERITY HOSPITAL SJ - 0 0 [facility] OUTPATIEN [facility] T HOSPITAL SJ - 0 0 [facility] OUTPATIEN [facility] T OFFICE 74557 [facility] SCHULSTAD CONSULTAT 0 0 DOROTEO DOROTEO ION NEW/ESTAB PATIENT 60 MIN OFFICE 50758 TRUMAN LAUGHLIN OUTPATIEN 0 0 JOEY Juarez T NEW 30 MINUTES OFFICE 47393 Rohit PEPE OUTPATIEN 9 9 CATALINA Bran[place] NEW 30 PSC MINUTES EMERGENCY 59548 SJ LE, 8 8 [facility] T VISIT PROF SERV MODERATE SEVERITY EMERGENCY 53848 SJ 8 8 [facility] T VISIT LOW/MODER SEVERITY HOSPITAL SJ - 8 8 [facility] OUTPATIEN [facility] SJ - 8 8 [facility] INPATIENT INC OFFICE 68841 SAMMY KELLEY 8 8 JERRY Miles T VISIT 15 MINUTES
--- OUTSIDE RECORDS SUMMARY | 2017-02-01 02:14 | External Medical Summary Rpt ---
Author Author , Organization [employer] Address Unknown Phone Unavailable Care Team Providers Care Manager Recruiting Name Role Phone TRUMAN AKERS, TRUMAN Unavailable Unavailable OSWALD ARNOLD OSWALD, ARNOLD Unavailable Unavailable OSWALD TRUMAN, JOEY W, Unavailable Unavailable JOEY LAUGHLIN W AYROMAN, MC, AYBRITTNEYM, Unavailable Unavailable MC PRIETO TER, PRIETO TER Unavailable Unavailable [facility], [facility] ALL Unavailable Unavailable [facility] Unavailable Unavailable SERV[facility], [facility] Unavailable Unavailable [facility], [facility] MICHELLE DUMONT, Unavailable Unavailable [facility], Un[facility] NAGI FLANAGAN, Unavailable Unavailable NAGI FLANAGAN, CHICA Unavailable Unavailable MELANI [facility] EDWARDS, Unavailable Unavailable [facility] EDW[facility] Unavailable Unavailable INC, [facility] Unavailable [facility], [facility], Unavailable Unavailable [facility] Unavailable Unavailable SERVICES, [facility] RAKESH MCGINNIS, Unavailable Unavailable [facility] Unavailable Unavailable LAB, [id number], Unavailable Unavailable [id number] Unavailable Unavailable [id number] [address] [id number], [facility] [id number] [address] [id number] CISCO SANTOS, CISCO Unavailable Unavailable TOM SCHULSTAD DOROTEO, Unavailable Unavailable SCHULSTAD DOROTEO SCHULSTAD DOROTEO, Unavailable Unavailable SCHULSTAD DOROTEO BENEDICTO MAT, Unavailable Unavailable BENEDICTO MAT SOKAN BAB, SOKAN BAB Unavailable Unavailable OCTAVIO DURAND, Unavailable Unavailable OCTAVIO DURAND A C, CATALINA, Unavailable Unavailable Rohit C Purpose Continuity of Care Document - 09-08-2007 through 2016 Problems Code Diagnosis DOS Provider Status J101 FLU D/T [facility] 11-10-2015 [place] ID FLU [facility] RESP MANIFESTATI ONS E876 HYPOKALEMIA 10-28-2015 [facility] R002 PALPITATION 10-28-2015 [facility] R079 CHEST PAIN 10-28-2015 [facility] UNSPECIFIED [facility]ANS GROUP R9431 ABNORMAL 10-28-2015 [facility]LECTROCARD [facility] IOGRAM INC R000 TACHYCARDIA 10-24-2015 [facility] UNSPECIFIED SERVICE R110 NAUSEA 10-24-2015 [facility] SERVICE 462 ACUTE 10-11-2014 TRUMAN AKERS PHARYNGITIS 4659 ACUTE URIS 10-11-2014 TRUMAN AKERS OF UNSPECIFIED SITE 15931 ESOPHAGEAL 02-09-2012 [facility] 7061 OTHER ACNE 01-18-2012 TRUMAN OSWALD 57945 CLOSED 11-06-2011 [facility] FRACTURE [facility] UNSPEC INC PHALANX/PHA LANGES HAND 77583 CLOSED 11-06-2011 [facility] DISTAL SERVICES PHALANX OR PHALANGES HAND 96385 CHOLECYSTIT 03-13-2010 COMMUNITY IS, ANESTH OF UNSPECIFIED THE [place] 83021 CHRONIC 03-13-2010 PATHOLOGY & CHOLECYSTIT CYTOLOGY IS LAB 5758 OTHER 03-13-2010 [facility] SPECIFIED [facility] DISORDER OF INC GALLBLADDER 96235 NAUSEA 03-03-2010 [facility] ALONE DOROTEO 7873 FLATULENCE 03-03-2010 [facility] ERUCTATION DOROTEO AND GAS PAIN 16527 ABDOMINAL 03-03-2010 [facility] PAIN RIGHT DOROTEO UPPER QUADRANT 5759 UNSPECIFIED 02-23-2010 ARNOLD, DISORDER JOEY W OF GALLBLADDER 4619 ACUTE 08-07-2009 Rohit ARNOLD SINUSITISMD PSC UNSPECIFIED 38275 PAIN IN 09-16-2007 [facility] PROF SERV 79424 PREV C/S 09-14-2007 [facility] W/WO CLIN[facility] OF MENTION [facility] COND V252 STERILIZATI 09-14-2007 PATHOLOGY & ON CYTOLOGY LAB V270 OUTCOME OF 09-14-2007 [facility] V221 SUPERVISION 09-08-2007 KVNG Miles OF [...] 80 5- 5- 00 08 Av ve NE 20 20 20 AI ai DE 81 08 08 D la 0 PH bl 20 AR e M MG #3 93 TA 8 BL ET Procedures Procedure DOS Code Location Performer Comment ECG 16361 [facility] ROUTINE 6 [facility] ECG INC INC W/LEAST 12 LDS TRCG ONLY W/O I&R COLLECTIO 37389 [facility] GUST[facility]FS[facility] N VENOUS 6 [facility] BLOOD INC INC VENIPUNCT URE ECG 20954 [facility] ROUTINE 6 PHYSICIAN MAT ECG S GROUP W/LEAST 12 LDS I&R ONLY BASIC 48638 [facility] METABOLIC 6 [facility] PANEL INC INC CALCIUM TOTAL RADIOLOGI 98711 MAINE CAPPS ALL C EXAM 6 MEDICAL CHEST 2 IMAGING VIEWS ASS FRONTAL&L ATERAL GROUND A0425 [facility] MILEAGE 6 AMBULANCE AMBULANCE PER SERVICE SERVICE STATUTE MILE AMB A0427 [facility] SERVICE 6 AMBULANCE AMBULANCE ALS SERVICE SERVICE EMERGENCY TRANSPORT LEVEL 1 RADEX 88433 [facility] GUSTAFS[facility] HAND 2 [facility] MINIMUM 3 INC INC VIEWS LAPAROSCO 20035 TIFFANIE MORENO PY SURG 0 DOROTEO DOROTEO CHOLECYST ECTOMY ANES 46782 [facility] KIZZY, INTRAPERI 0 ANESTH OCTAVIO Rohit TONEAL OF THE [place] W/L[place] [address] [facility] INFUSION 0 [facility] THERAPY/P INC INC ROPHYLAXI S /DX 1ST TO 1 HR THERAPEUT 59200 [facility] IC 0 [facility] INJECTION INC INC IV PUSH EACH NEW DRUG LEVEL III 63895 PATHOLOGY PATHOLOGY SURG 0 & & PATHOLOGY CYTOLOGY CYTOLOGY LAB LAB GROSS&[place] [address] S[facility] INFUSION 0 [facility] THERAPY INC INC PROPHYLAX IS/DX EA HOUR LAPAROSCO 5123 [facility] PIC 0 [facility] CHOLECYST INC INC ECTOMY GONADOTRO 59222 [facility] PIN 0 [facility] CHORIONIC INC INC QUALITATI VE BLOOD 84638 [facility] COUNT 0 [facility] COMPLETE INC INC AUTO&AUTO DIFRNTL WBC IADNA 90107 Rohit PEPE STREPTOCO 9 CATALINA Ibarra CCUS PSC GROUP A QUANTIFIC ATION RADIOLOGI 33317 [facility] MEDICAL NAGI EXAMINATI IMAGING ON KNEE 3 ASSOCIATE VIEWS S OTH 6632 [facility] BILATERAL 8 [facility] LIGATION INC INC & DIVISIN FALLOPIAN TUBES LIG/TRNSX 93170 Dorcas KELLEY MD FALOPIAN TUBE DEL/ABDML SURG 44460 [facility], DELIVERY 8 [facility] EMERGENCY DEPARTMENT LOW 741 SJ [facility] CERVICAL 8 [facility] INC INC SECTION ANESTHESI 36743 Rohit PIPER 8 ANESTH RAKESH F OF THE DELIVERY [place] ONLY L[place] II 9[address]10 PATHOLOGY PATHOLOGY SURG 8 & & PATHOLOGY CYTOLOGY CYTOLOGY LAB LAB GROSS&MELANI ROSCOPIC EXAM 76172 [facility] EDWARDS, DELIVERY 8 HARPEL MD KVNG R ONLY W/POSTPAR STEPHANIE CARE Encounters Encounter Start End Date Code Location Performer Type Date OFFICE 64356 S[facility] RATLIFF OUTPATIEN 6 6 [facility] T VISIT HOSPITAL 15 MINUTES HOSPITAL S[facility] - 6 6 [facility] OUTPATIEN INC T OFFICE 00374 [facility] OUTPATIEN 6 6 PHYSICIAN MAT T NEW 60 S GROUP MINUTES EMERGENCY 34079 KAPIL CALLESEY DEPT 6 6 PHYSICIAN MELANI VISIT S, PLL[facility] HIGH SEVERITY& THREAT FUNCJ OFFICE 61532 TRUMAN CHRISTIANSON 5 5 OSWALD OSWALD T VISIT 15 MINUTES OFFICE 15311 TRUMAN CHRISTIANSON 4 4 OSWALD OSWALD T VISIT 15 MINUTES HOSPITAL SJ - 2 2 [facility] OUTPATIEN [facility] T EMERGENCY 14138 [facility] 2 2 [facility] T VISIT LOW/MODER SEVERITY EMERGENCY 20230 [facility] PECK 2 2 EMERGENCY [facility] T VISIT HIGH/URGE NT SEVERITY OFFICE 31517 TRUMAN CHRISTIANSON 2 2 OSWALD OSWALD T VISIT 15 MINUTES EMERGENCY 46914 [facility] GROVER 2 2 EMERGENCY [facility] T VISIT HIGH/URGE NT SEVERITY HOSPITAL S[facility] - 2 2 [facility] OUTPATIEN [facility] T EMERGENCY 57292 SJ 2 2 [facility] T VISIT LOW/MODER SEVERITY HOSPITAL [facility] - 0 0 [facility] OUTPATIEN [facility] T HOSPITAL SJ - 0 0 [facility] OUTPATIEN [facility] T OFFICE 44318 SCH[facility] SCHULSTAD CONSULTAT 0 0 DOROTEO DOROTEO ION NEW/ESTAB PATIENT 60 MIN OFFICE 14969 TRUMAN LAUGHLIN OUTPATIEN 0 0 JOEY Juarez T NEW 30 MINUTES OFFICE 74189 Rohit PEPE OUTPATIEN 9 9 CATALINA Branham NEW 30 PSC MINUTES EMERGENCY 59406 SJ LE, 8 8 [facility] T VISIT PROF SERV MODERATE SEVERITY EMERGENCY [address] [facility] T VISIT LOW/MODER SEVERITY HOSPITAL SJ - 8 8 [facility] OUTPATIEN [facility] SJ - 8 8 [facility] INPATIENT INC OFFICE 17889 SAMMY KELLEY 8 8 JERRY Miles T VISIT 15 MINUTES
--- OUTSIDE RECORDS SUMMARY | 2017-02-01 02:15 | External Medical Summary Rpt ---
Author Author , Organization [employer] Address Unknown Phone Unavailable Purpose Continuity of Care Document - 11-10-1996 through 2016 Immunization Name Date Route CVX Reacti Commen Provid Is Given on t er Refuse d Td Histor H149 No (adult 1996 ical ), Inform adsorb ation ed - Source Unspec ified
--- OUTSIDE RECORDS SUMMARY | 2017-02-01 02:15 | External Medical Summary Rpt ---
Author Author [employer], [facility] [employer] Organization [employer] Address Unknown Phone Unavailable Results Chlamydia/GC Amplification Observa Value Referen Units Interpr Notes Date tion ce etation Range Chlamyd Negativ Negativ No No No January 26 ia e e informa informa informa 2017 trachom tion in tion in tion in 9:05 AM atis source source source rRNA data data data [Presen ce] in Unspeci fied specime n by Probe & target amplifi cation method Neisser Negativ Negativ No No Perform January 26 ia e e informa informa ed at: 2017 gonorrh tion in tion in CB - 9:05 AM oeae source source [facility] rRNA data data [Presen [place] ce] in [address] [facility] [address], specime [place], [place] Probe & [id number] target 69Lab Directo amplifi r: cation Vincent method Poornima reilly PhD, Phone: [phone] Choriogonadotropin.beta subunit [Units] in 24 hour Urine Observa Value Referen Units Interpr Notes Date tion ce etation Range Choriogon NEG No No Meulendyk January 26 adotropin informati informati Rusty lemus 2017 9:05 .beta on in on in ne AM subunit source source [Units] data data in 24 hour Urine Comprehensive metabolic 2000 panel in Serum or Plasma Observa Value Referen Units Interpr Notes Date tion ce etation Range Albumin/G 1.1 - 1.8 No Low No January 26 lobulin informati informati 2016 8:50 [Mass on in on in AM ratio] in source source Serum or data data Plasma Albumin 3.4 - 5.0 gm/dL Normal No January 26 [Mass/vol informati 2016 8:50 ume] in on in AM Serum or source Plasma data Alkaline 46 - 116 U/L Normal No January 26 phosphata informati 2016 8:50 se on in AM [Enzymati source c data activity/ volume] in Serum or Plasma Bilirubin 0.2 - 1.0 mg/dL Normal No January 26 .total informati 2016 8:50 [Mass/vol on in AM ume] in source Serum or data Plasma Urea 7 - 18 mg/dL Normal No January 26 nitrogen informati 2016 8:50 [Mass/vol on in AM ume] in source Serum or data Plasma Calcium 8.5 - mg/dL Normal No January 26 [Mass/vol 10.1 informati 2016 8:50 ume] in on in AM Serum or source Plasma data Chloride 98 - 107 mmoL/L Normal No January 26 [Moles/vo informati 2016 8:50 lume] in on in AM Serum or source Plasma data Carbon 21.0 - mmoL/L Normal No January 26 dioxide, 32.0 informati 2016 8:50 total on in AM [Moles/vo source lume] in data Serum or Plasma Creatinin 0.55 - mg/dL Normal No January 26 e 1.02 informati 2016 8:50 [Mass/vol on in AM ume] in source Serum or data Plasma Creatinin 50 - 200 ML/MIN Normal No January 26 e renal informati 2016 8:50 clearance on in AM source predicted data by Cockcroft -Gault formula Estimated 59- ML/MIN No REFERENCE January 26 informati RANGE: 2017 8:50 glomerula on in >60 AM r source ML/MIN/1. filtratio data 73 SQUARE n rate METERSIf (GF this patient is -A merican, then multiply theresult by 1.210. Globulin 1.3 - 3.2 gm/dL High No January 26 [Mass/vol informati 2016 8:50 ume] in on in AM Serum source data Glucose 74 - 106 mg/dL Normal No January 26 [Mass/vol informati 2016 8:50 ume] in on in AM Serum or source Plasma data Potassium 3.5 - 5.1 mmoL/L Low No January 26 informati 2016 8:50 [Moles/vo on in AM lume] in source Serum or data Plasma Sodium 136 - 145 mmoL/L Normal No January 26 [Moles/vo informati 2016 8:50 lume] in on in AM Serum or source Plasma data Aspartate 15 - 37 U/L Low No January 26 informati 2016 8:50 aminotran on in AM sferase source [Enzymati data c activity/ volume] in Serum or Plasma Alanine 12 - 78 U/L Normal No January 26 aminotran informati 2016 8:50 sferase on in AM [Enzymati source c data activity/ volume] in Serum or Plasma Protein 6.4 - 8.2 gm/dL Normal No January 26 [Mass/vol informati 2016 8:50 ume] in on in AM Serum or source Plasma data PT & aPTT panel in Platelet poor plasma by Coagulation assay Observa Value Referen Units Interpr Notes Date tion ce etation Range INR in 0.9 - 1.1 No Normal INDICATIO January 26 Blood by informati N 2016 8:50 Coagulati on in AM on assay source INR data RANGETHER APY FOR DVT, PE, ATRIAL FIB; 2.0 - 3.0PROPHY LAXIS FOR VTETHERAP Y FOR MECHANICA L HEART 2.5 - 3.5VALVE; PREVENTIO N OF SYSTEMICE MBOLISM SECONDARY TO AMI Prothromb 9.4 - SECONDS Normal No January 26 in time 11.8 informati 2016 8:50 (PT) in on in AM Platelet source poor data plasma by Coagulati on assay Activated 23.6 - SECONDS Normal No January 26 partial 34.0 informati 2016 8:50 thrombpla on in AM stin time source (aPTT) data in Platelet poor plasma by Coagulati on assay CBC W Auto Differential panel in Blood Observa Value Referen Units Interpr Notes Date tion ce etation Range Basophils 0 - 0.2 K/MM3 Normal No January 26 informati 2016 8:50 [#/volume on in AM ] in source Blood by data Automated count Basophils 0.1 - 2.0 % Normal No January 26 informati 2016 8:50 leukocyte on in AM s in source Blood by data Automated count Eosinophi 0.0 - 0.4 K/mm3 Normal No January 26 ls informati 2016 8:50 [#/volume on in AM ] in source Blood by data Automated count Eosinophi 0.1 - % Normal No January 26 ls/100 12.0 informati 2016 8:50 leukocyte on in AM s in source Blood by data Automated count Granulocy 1.8 - 7.8 K/mm3 Normal No January 26 jaswinder informati 2016 8:50 [#/volume on in AM ] in source Blood by data Automated count Granulocy 37.0 - % Normal No January 26 jaswinder/100 80.0 informati 2017 8:50 leukocyte on in AM s in source Blood by data Automated count Hematocri 37.0 - % Normal No January 26 t [Volume 47.0 informati 2016 8:50 on in AM Fraction] source of Blood data Hemoglobi 12.2 - g/dL Normal No January 26 n 16.2 informati 2016 8:50 [Mass/vol on in AM ume] in source Blood data Lymphocyt 0.7 - 4.5 K/mm3 Normal No January 26 es informati 2016 8:50 [#/volume on in AM ] in source Unspecifi data ed specimen by Automated count Lymphocyt 10 - 50.0 % Normal No January 26 es informati 2016 8:50 [#/volume on in AM ] in source Unspecifi data ed specimen by Automated count Erythrocy 27 - 31.2 pg Normal No January 26 te mean informati 2016 8:50 corpuscul on in AM ar source hemoglobi data n [Entitic mass] Erythrocy 31.8 - g/dl Normal No January 26 te mean 35.4 informati 2016 8:50 corpuscul on in AM ar source hemoglobi data n concentra tion [Mass/vol ume] by Automated count Erythrocy 82.2 - fl Normal No January 26 te mean 97.8 informati 2016 8:50 corpuscul on in AM ar volume source [Entitic data volume] by Automated count Monocytes 0.1 - 1.0 K/mm3 Normal No January 26 informati 2016 8:50 [#/volume on in AM ] in source Blood by data Automated count Monocytes 1.7 - 9.3 % Normal No January 26 / informati 2016 8:50 leukocyte on in AM s in source Blood by data Automated count Platelet 7.4 - fl Low No January 26 mean 10.4 informati 2016 8:50 volume on in AM [Entitic source volume] data in Blood by Automated count Platelets 142 - 424 K/mm3 Normal No January 26 informati 2016 8:50 [#/volume on in AM ] in source Blood data Erythrocy 4.2 - 5.4 M/mm3 Low No January 26 jaswinder informati 2016 8:50 [#/volume on in AM ] in source Amniotic data fluid Erythrocy 11.5 - % Normal No January 26 te 17.5 informati 2016 8:50 distribut on in AM ion width source [Entitic data volume] by Automated count Leukocyte 4.8 - K/MM3 Normal No January 26 s 10.8 informati 2017 8:50 [#/volume on in AM ] in source Blood data Urinalysis macro (dipstick) panel in Urine Observa Value Referen Units Interpr Notes Date tion ce etation Range Appeara CLOUDY CLEAR No No No January 25 nce of informa informa informa 2016 Urine tion in tion in tion in 9:41 AM source source source data data data Bilirub NEGATIV NEG No No No January 25 in E informa informa informa 2016 [Presen tion in tion in tion in 9:41 AM ce] in source source source Urine data data data by Test strip Erythro LARGE NEG No No No January 25 cytes informa informa informa 2016 [Presen tion in tion in tion in 9:41 AM ce] in source source source Urine data data data Color ORANGE YELLOW No No No January 25 of informa informa informa 2016 Urine tion in tion in tion in 9:41 AM source source source data data data Glucose NEG No No No January 25 [Mass/vol informati informati informati 2016 9:41 ume] in on in on in on in AM Urine by source source source Test data data data strip Ketones NEGATIV NEG mg/dL No No January 25 E informa informa 2016 [Presen tion in tion in 9:41 AM ce] in source source Urine data data by Automat ed test strip pH of 5.0 - 8.5 No Normal No January 25 Urine informati informati 2017 9:41 on in on in AM source source data data Protein NEG mg/dL No No January 25 [Mass/vol informati informati 2017 9:41 ume] in on in on in AM Urine by source source Automated data data test strip Specific 1.005 - No Normal No January 25 gravity 1.030 informati informati 2016 9:41 of Urine on in on in AM source source data data Leukocy TRACE NEG No Abnorma No January 25 te informa l informa 2017 esteras tion in tion in 9:41 AM e source source [Presen data data ce] in Urine by Automat ed test strip Nitrite NEGATIV NEG No No No January 25 E informa informa informa 2016 [Presen tion in tion in tion in 9:41 AM ce] in source source source Urine data data data by Test strip Urobili 0.2 NEG E.U./dL No No January 25 perry informa informa 2016 [Presen tion in tion in 9:41 AM ce] in source source Urine data data by Test strip
--- OUTSIDE RECORDS SUMMARY | 2017-02-01 02:15 | External Medical Summary Rpt ---
[...] data [Presen [place] ce] in [address], specime [place], [place] Probe & [id number] target 69Lab Directo amplifi r: cation Vincent method Poornima reilly PhD, Phone: [phone] Choriogonadotropin.beta subunit [Units] in 24 hour [...]
== END 2017-01-25 10:10 | disposition home or self-care (01) ==
LOC: UTC 09:27
PROVIDERS: Nurse Practitioner
DX: N39.0 Urinary tract infection, site not specified (principal)

== ENCOUNTER → 2017-05-05 | Outpatient (CLI) | payer MEDICAID ==
[~2017-05-05] MED LIST changes: +BACTRIM DS 8001 TA1 PO
[2017-05-05 08:36] LABS: HEMOGLOBIN 12.2 g/dL (12.2-16.2); LYMPH # 1.3 K/mm3 (0.7-4.5); LYMPH % 22.8 % (10-50.0)
[2017-05-05 09:27] LABS: BUN 7 mg/dL (7-18)
[2017-05-05 09:30] LABS: GFR (ESTIMATED) 93 ML/MIN (59-)
[2017-05-06 09:37] LABS: Vitamin B12 624 pg/mL (211-946)
[2017-05-09 03:35] LABS: 1,25-Dihydroxy, Vitamin D-2 <10 pg/mL (.); 1,25-Dihydroxy, Vitamin D-3 55 pg/mL (.); Total 1,25-Dihydroxy,Vitamin D 56 pg/mL (.)
== END ==
LOC: LAB 08:27
PROVIDERS: Nurse Practitioner Family
DX: R00.0 Tachycardia, unspecified (principal)

== ENCOUNTER → 2017-06-21 | Outpatient (CLI) | payer MEDICAID | LOC: RT 13:19 | DX: G47.10 Hypersomnia, unspecified (principal); R00.2 Palpitations; R07.9 Chest pain, unspecified; F41.9 Anxiety disorder, unspecified | CPT/HCPCS: G0399-TC ==

== ENCOUNTER → 2017-06-23 | Outpatient (CLI) | payer MEDICAID ==
[2017-06-23 19:11] LABS: AMPHETAMINES/METAMPHETAMINES NEGATIVE ng/mL (<1000)
== END ==
LOC: LAB 15:46
PROVIDERS: Nurse Practitioner Family
DX: Z79.899 Other long term (current) drug therapy (principal)